=== PATIENT | female | born 1995 | race Caucasian/White ===

== ENCOUNTER → 2018-12-02 | Outpatient (CLI) | payer OTHER ==
--- NOTE | 2018-12-02 11:19 | REP ---
KUB ABDOMEN AND PELVIS: Two KUB films of abdomen and pelvis are performed. Bowel gas pattern is normal with no evidence of bowel obstruction. No dilated small bowel loops are seen. No abnormal calcifications are seen. 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 IMPRESSION: Normal bowel gas pattern. Electronically Signed by Zaid Belle MD 12/04/2018 07:22 P
--- NOTE | 2018-12-02 11:24 | REP ---
SACRUM AND COCCYX: Three views of the sacrum and coccyx performed. 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 Otherwise the sacrum and coccyx appear unremarkable with no fracture or intrinsic osseous pathology. 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 Electronically Signed by Zaid Belle MD 12/04/2018 07:22 P
== END ==
LOC: M LRY 10:27
PROVIDERS: ATTEND Physician Assistant
DX: R10.13 Epigastric pain (principal); M53.3 Sacrococcygeal disorders, not elsewhere classified
CPT/HCPCS: 72220; 74018; 81002; 81025; G0463